=== PATIENT | female | born 1940 ===

== ENCOUNTER 2025-07-25 12:00 | Inpatient (IN) | payer OTHER ==
[~2025-07-25] VITALS: Ht 160 cm; Wt 77.1 kg
[2025-07-25] MEDS ORDERED: VITAMIN D310 MCG/1 M (14:24)
[2025-07-25] MEDS ORDERED: GLIPIZIDE XL10 MG PO (14:25)
[2025-07-25] MEDS ORDERED: FARXIGA10 MG PO (14:25)
[2025-07-25] MEDS ORDERED: VASOTEC5 MG PO (14:25)
[2025-07-25] MEDS ORDERED: PLAVIX75 MG PO (14:25)
[2025-07-25 14:26] VITALS: BP 127/73
[2025-07-25] MEDS ORDERED: SIMVASTATIN5 MG (14:26)
[2025-07-25 14:29] VITALS: BP 151/82
[2025-07-31 11:23] LABS: COVID-19 AG NEGATIVE (NEGATIVE)
[2025-08-02] MEDS ORDERED: CEFAZOLIN SODIUM 1,000 MG VIAL ONE (10:23)
[2025-08-02] MEDS ORDERED: METRONIDAZOLE/SODIUM CHLORIDE 500 MG/100 ML PIGGYBACK IV ONE ×2 (10:23→14:45)
[2025-08-02] MEDS ORDERED: CEFAZOLIN SODIUM 1,000 MG VIAL IV ONE (14:45)
[2025-08-02] MEDS ORDERED: OxyCODONE HCL 5 MG TABLET (ROXICODONE) PO PRN (16:30)
[2025-08-02] MEDS ORDERED: MORPHINE SULFATE 4 MG/ML CARTRIDGE IV PRN (16:30)
[2025-08-02] MEDS ORDERED: RINGERS SOLUTION,LACTATED 1,000 ML IV SCH (16:30)
[2025-08-02] MEDS ORDERED: METOCLOPRAMIDE HCL 5 MG/ML VIAL IV SCH (17:00)
[2025-08-02] MEDS ORDERED: CEFAZOLIN SODIUM 1,000 MG VIAL IV SCH (17:00)
[2025-08-02] MEDS ORDERED: SIMETHICONE 125 MG CAPSULE PO SCH (17:00)
[2025-08-02] MEDS ORDERED: ACETAMINOPHEN 500 MG GEL..CAP PO SCH (18:00)
[2025-08-02 20:58] LABS: BASO % 0.2 % (0.1-1.2); EOS # 0.01 (0.04-0.54); EOS % 0.1 % (0.7-7.0); LYMPH # 1.63 (1.18-3.74); LYMPH % 11.2 % (19.3-53.1); MEAN PLATELET VOLUME 11.30 fl (9.4-12.4); MONO # 1.00 (0.24-0.82); MONO % 6.9 % (4.7-12.5); NEUT # 11.81 (1.56-6.13); NEUT % 81.2 % (34.0-71.1); RED CELL DISTRIBUTION WIDTH 13.7 % (11.6-14.4)
[2025-08-02] MEDS ORDERED: DOCUSATE SODIUM 100MG CAP PO SCH (21:00)
[2025-08-02] MEDS ORDERED: GABAPENTIN 300 MG CAPSULE PO SCH (21:00)
[2025-08-02] MEDS ORDERED: FAMOTIDINE/PF 20 MG/2 ML VIAL IV PUSH SCH (21:00)
[2025-08-02 21:24] LABS: BUN CREA RATIO 16.0 (7.0-25.0); CREATININE SERUM 1.34 mg/dL (0.55-1.02); GFR 37.5; GLUCOSE FASTING 166.0 mg/dL (65-100); OSMOLALITY SERUM 290.0 MOSM/KG (275-295)
[2025-08-02 21:45] VITALS: BP 127/73; O2SAT 95
[2025-08-03 01:15] VITALS: BP 108/65; O2SAT 96
[2025-08-03 06:44] LABS: BASO % 0.4 % (0.1-1.2); EOS # 0.01 (0.04-0.54); EOS % 0.1 % (0.7-7.0); LYMPH # 2.23 (1.18-3.74); LYMPH % 21.1 % (19.3-53.1); MEAN PLATELET VOLUME 11.60 fl (9.4-12.4); MONO # 1.26 (0.24-0.82); MONO % 11.9 % (4.7-12.5); NEUT # 6.99 (1.56-6.13); NEUT % 66.3 % (34.0-71.1); RED CELL DISTRIBUTION WIDTH 13.7 % (11.6-14.4)
[2025-08-03 07:21] LABS: BUN CREA RATIO 17.0 (7.0-25.0); CREATININE SERUM 1.33 mg/dL (0.55-1.02); GFR 37.83; GLUCOSE FASTING 133.0 mg/dL (65-100); OSMOLALITY SERUM 291.0 MOSM/KG (275-295)
[2025-08-03 08:00] VITALS: BP 136/66; O2SAT 97
== END 2025-08-03 13:42 | disposition home or self-care (01) | DRG 741 ==
LOC: O/R 08-02 10:00 → SURH 08-02 12:00
PROVIDERS: Obstetrics & Gynecology; ADMIT Obstetrics & Gynecology Gynecologic Oncology; ATTEND Obstetrics & Gynecology Gynecologic Oncology
PROC: 0UT74ZZ Resection of Bilateral Fallopian Tubes, Percutaneous Endoscopic Approach (ICD-10-PCS; 2025-08-02)
PROC: 0UT24ZZ Resection of Bilateral Ovaries, Percutaneous Endoscopic Approach (ICD-10-PCS; 2025-08-02)
PROC: 07BC4ZZ Excision of Pelvis Lymphatic, Percutaneous Endoscopic Approach (ICD-10-PCS; 2025-08-02)
PROC: 0UT94ZZ Resection of Uterus, Percutaneous Endoscopic Approach (ICD-10-PCS; principal; 2025-08-02 22:15)
DX: C54.1 Malignant neoplasm of endometrium (principal)